=== PATIENT | female | born 1965 | race Caucasian/White ===

== ENCOUNTER 2024-01-25 14:33 | Outpatient (RCR) | payer BC, SELFPAY | END 2024-02-05 23:59 | disposition home or self-care (01) | LOC: SCTC 14:33 | PROVIDERS: PCP Internal Medicine; Referring Provider Internal Medicine; Visit Provider Internal Medicine Hematology & Oncology | DX: D25.9 Leiomyoma of uterus, unspecified (principal); N83.202 Unspecified ovarian cyst, left side; N83.201 Unspecified ovarian cyst, right side; K74.60 Unspecified cirrhosis of liver | CPT/HCPCS: 99212; G0463 ==

== ENCOUNTER → 2024-02-07 | Outpatient (CLI) | payer BC, SELFPAY ==
--- NOTE | 2024-02-07 | XR_ITS ---
Examination: Left femur 2 views Technique one AP lateral left femur 2 views Exam date and time: February 07, 2024 0905 hours INDICATIONS: Left hip and femur pain beginning 3 weeks ago FINDINGS: No hip fracture or hip dislocation Mild left hip osteoarthritis Shaft of the femur intact Moderate narrowing medial joint space IMPRESSION: Mild left hip osteoarthritis
--- NOTE | 2024-02-07 | XR_ITS ---
Examination:Left hip AP, lateral, AP pelvis 3 views Technique: Hip AP lateral, AP pelvis, 3 views Exam date and time:February 07, 2024 0900 hours INDICATIONS: Left hip pain beginning 3 weeks ago. FINDINGS: Mild left hip osteoarthritis Mild right hip osteoarthritis Bones of the pelvis intact with no hip fracture IMPRESSION: Mild bilateral hip osteoarthritis.
== END | disposition home or self-care (01) ==
LOC: CDIM 07:26
PROVIDERS: PCP Internal Medicine; Referring Provider Internal Medicine; Visit Provider Internal Medicine
DX: M16.0 Bilateral primary osteoarthritis of hip (principal)
CPT/HCPCS: 73502; 73552

== ENCOUNTER → 2024-02-07 | Outpatient (CLI) | payer BC, SELFPAY ==
--- NOTE | 2024-02-07 17:00 | XR_ITS ---
Examination: Retroperitoneal ultrasound, complete Technique: Multiple high resolution grayscale images of the retroperitoneum obtained, including kidneys and bladder. Exam date and time:February 07, 2024 1713 hrs. Indications: Intermittent flank pain years, history urinary tract infections Findings: Right kidney 9.7 x 5.0 x 4.8 cm in the cortex 1.8 cm Moderate right hydronephrosis Left kidney 10.8 x 5.3 x 5.7 cm cortex 1.7 cm Moderate bilateral renal parenchyma scar formation No renal calculi No bladder mass or bladder calculi Bladder prevoid volume 20 25 cc postvoid 69 cc Incidental note right adnexal cyst 7.4 x 6.7 cm Impression: Moderate bilateral renal parenchymal scar formation Moderate right hydronephrosis Right adnexal cyst 7.4 x 6.7 cm
== END | disposition home or self-care (01) ==
PROVIDERS: PCP Internal Medicine; Referring Provider Internal Medicine; Visit Provider Internal Medicine
DX: N28.89 Other specified disorders of kidney and ureter (principal); N13.30 Unspecified hydronephrosis; E27.8 Other specified disorders of adrenal gland
CPT/HCPCS: 76770

== ENCOUNTER → 2024-02-17 | Outpatient (CLI) | payer BC, SELFPAY ==
[2024-02-17 10:21] LABS: Basophils % (Auto) 1 % (0-2.5); Eosinophils # (Auto) 0.1 Thou/mm3 (0.0-0.5); Eosinophils % (Auto) 2 % (0-10); Hematocrit 37.9 % (36.0-46.0); Hemoglobin 13.2 g/dL (12.0-16.0); Immature Granulocytes % (Auto) 0 % (0-0); Immature Granulocytes Auto 0.01 Thou/mm3 (0.00-0.00); Lymphocytes # (Auto) 0.9 Thou/mm3 (1.0-4.8); Lymphocytes % (Auto) 23 % (10-50); Mean Corpuscular HGB Conc 34.8 g/dl (31.0-37.0); Mean Corpuscular Hemoglobin 35.9 pg (25.0-35.0); Mean Corpuscular Volume 103 fL (80-100); Monocytes # (Auto) 0.6 Thou/mm3 (0.0-0.8); Monocytes % (Auto) 15 % (0-12); Neutrophils # (Auto) 2.2 Thou/mm3 (1.8-7.7); Neutrophils % (Auto) 58 % (37-80); Nucleated Red Blood Cell % 0 /100 WBC (0); Platelet Count 103 Thou/mm3 (140-440); RDW Standard Deviation 50.4 fL (36.4-46.3); Red Blood Count 3.68 Miln/mm3 (4.00-5.20); White Blood Count 3.8 Thou/mm3 (3.6-11.0)
[2024-02-17 10:31] LABS: Glucose Estimated Average 111 mg/dL (80-131); Hemoglobin A1C 5.5 % Hgb (4.8-6.0)
[2024-02-17 10:58] LABS: Vitamin B12 1053 pg/mL (211-911); Vitamin D 25 Hydroxy Total 41.4 ng/mL (7.3-40.2)
[2024-02-17 10:59] LABS: Alanine Aminotransferase 36 U/L (10-49); Albumin/Globulin Ratio 1.3 (1.2-2.2); Alkaline Phosphatase 197 U/L (46-116); Anion Gap 5 (7-16); Aspartate Amino Transferase 52 U/L (0-34); BUN/Creatinine Ratio 30 Ratio (12-20); Bilirubin,Total 1.1 mg/dL (0.3-1.2); Blood Urea Nitrogen 27 mg/dL (9-23); Calcium 9.5 mg/dL (8.3-10.6); Calcium (Corrected) 9.5 mg/dL (8.5-10.1); Carbon Dioxide 27.9 mMol/L (20.0-31.0); Cardiac Risk Estimate 4.8 RATIO (3.7-5.6); Chloride 107 mMol/L (98-107); Cholesterol 115 mg/dL (132-200); Creatinine (Component) 0.9 mg/dL (0.6-1.3); Glucose 95 mg/dL (74-106); HDL Cholesterol 24 mg/dL (40-60); LDL Cholesterol,Calculated 73 mg/dL (0-130); Osmolality,Calculated 284 (275-295); Sodium 140 mMol/L (136-145); Thyroid Stimulating Hormone 4.42 uIU/mL (0.55-4.78); Triglycerides 89 mg/dL (30-150); Uric Acid 6.8 mg/dL (3.1-7.8); eGFR > 60 See Note
[2024-02-17 14:07] LABS: Collection Type, Urine Clean Catch
[2024-02-17 15:19] LABS: Bacteria,Urine 2+; Bilirubin,Urine Negative (Negative); Blood,Urine Trace (Negative); Color,Urine Yellow (Lt Yel-Yel); Glucose, Urine Negative (Negative); Ketones,Urine Negative (Negative); Leukocyte Esterase,Urine Positive (Negative); Nitrite,Urine Positive (Negative); Protein,Urine Negative (Neg - Trace); RBC,Urine 5 /hpf (0-3); Specific Gravity,Urine 1.015 (1.001-1.035); Squamous Epithelial Cell,Urine 1 /hpf (0-5); Urobilinogen,Urine Negative mg/dL (0.0-1.0); WBC,Urine 53 /hpf (0-5)
[2024-02-17 15:34] LABS: Clarity,Urine Hazy (Clear/Hazy)
== END | disposition home or self-care (01) ==
LOC: COPL 08:38
PROVIDERS: PCP Internal Medicine; Referring Provider Internal Medicine; Visit Provider Internal Medicine
DX: Z00.00 Encounter for general adult medical examination without abnormal findings (principal)
CPT/HCPCS: 36415; 80053; 80061; 81001; 82306; 82607; 83036; 84443; 84550; 85025

== ENCOUNTER 2024-03-10 09:35 | Day surgery (SDC) | payer BC, SELFPAY ==
--- NOTE | 2024-03-09 08:24 | EKG_ITS ---
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
[2024-03-09 08:35] VITALS: BMI 33.1
[2024-03-09 09:28] LABS: Collection Type, Urine Clean Catch
[2024-03-09 09:49] LABS: Bacteria,Urine 1+; Bilirubin,Urine Negative (Negative); Blood,Urine 1+ (Negative); Color,Urine Yellow (Lt Yel-Yel); Glucose, Urine Negative (Negative); Ketones,Urine Negative (Negative); Leukocyte Esterase,Urine Positive (Negative); Nitrite,Urine Positive (Negative); PH,Urine 6.5 (5.0-7.0); Protein,Urine Negative (Neg - Trace); RBC,Urine 22 /hpf (0-3); Squamous Epithelial Cell,Urine 1 /hpf (0-5); Urobilinogen,Urine Negative mg/dL (0.0-1.0); WBC,Urine 91 /hpf (0-5)
[2024-03-09 09:55] LABS: Basophils % (Auto) 1 % (0-2.5); Eosinophils # (Auto) 0.1 Thou/mm3 (0.0-0.5); Eosinophils % (Auto) 2 % (0-10); Hematocrit 40.5 % (36.0-46.0); Hemoglobin 13.6 g/dL (12.0-16.0); Immature Granulocytes % (Auto) 0 % (0-0); Lymphocytes # (Auto) 1.1 Thou/mm3 (1.0-4.8); Lymphocytes % (Auto) 29 % (10-50); Mean Corpuscular HGB Conc 33.6 g/dl (31.0-37.0); Mean Corpuscular Hemoglobin 34.4 pg (25.0-35.0); Mean Corpuscular Volume 103 fL (80-100); Monocytes # (Auto) 0.5 Thou/mm3 (0.0-0.8); Monocytes % (Auto) 12 % (0-12); Neutrophils # (Auto) 2.3 Thou/mm3 (1.8-7.7); Neutrophils % (Auto) 57 % (37-80); Nucleated Red Blood Cell % 0 /100 WBC (0); Platelet Count 113 Thou/mm3 (140-440); RDW Standard Deviation 49.6 fL (36.4-46.3); Red Blood Count 3.95 Miln/mm3 (4.00-5.20)
[2024-03-09 10:01] LABS: INR 1.2 (0.9-1.3); Partial Thromboplastin Time 30.3 Seconds (22.0-36.0); Prothrombin Time 12.5 Seconds (9.0-12.2)
[2024-03-09 10:07] LABS: Alanine Aminotransferase 29 U/L (10-49); Albumin, Serum 4.3 gm/dL (3.4-4.8); Albumin/Globulin Ratio 1.2 (1.2-2.2); Alkaline Phosphatase 215 U/L (46-116); Anion Gap 6 (7-16); Aspartate Amino Transferase 43 U/L (0-34); BUN/Creatinine Ratio 22 Ratio (12-20); Bilirubin,Total 0.9 mg/dL (0.3-1.2); Blood Urea Nitrogen 24 mg/dL (9-23); Calcium 9.9 mg/dL (8.3-10.6); Calcium (Corrected) 9.9 mg/dL (8.5-10.1); Chloride 106 mMol/L (98-107); Creatinine (Component) 1.1 mg/dL (0.6-1.3); Estimated Creatinine Clearance 53.4 mL/min (>60); Globulin 3.5 gm/dL (2.3-3.5); Glucose 167 mg/dL (74-106); Osmolality,Calculated 289 (275-295); Potassium 4.3 mMol/L (3.4-5.1); Sodium 141 mMol/L (136-145); Total Protein 7.8 gm/dL (5.7-8.2); eGFR 57 See Note
[2024-03-09 10:38] LABS: Clarity,Urine Hazy (Clear/Hazy)
--- NOTE | 2024-03-09 12:06 | ESHP_ITS ---
RE: IRMA MACIEL : 1965 DATE OF ADMISSION: 03/10/2024 HISTORY OF PRESENT ILLNESS: Irma Maciel is a female patient with a recurrent urinary tract infection. She has many infections resistant to nitrofurantoin, Septra, and Cipro. CT of the abdomen and pelvis revealed a right kidney stone 6 to 7 mm in size. The patient is now scheduled to have ESWL for right kidney stones. PAST MEDICAL HISTORY: The patient has a history of cirrhosis of liver. There is no history of diabetes mellitus. No history of hypertension. PAST SURGICAL HISTORY: Included two C-sections. She had a fracture of the pelvis. SOCIAL HISTORY: She has two children. ALLERGIES: SHE IS ALLERGIC TO BACTRIM. HOME MEDICATIONS: She takes antibiotics when she gets infection. PHYSICAL EXAMINATION: HEENT: Normal. NECK: Supple. LUNGS: Clear. CARDIOVASCULAR: Heart sounds are normal. ABDOMEN: Soft without any organomegaly. No guarding. No rigidity. EXTREMITIES: Normal. LABORATORY DATA: Recent CT scan revealed right kidney stone 6 to 7 mm in the lower pole of the right kidney. PLAN: ESWL for right kidney stones. Planned procedure, risks, and complications have been discussed with the patient. Her recent UTI was E. coli UTI, sensitive to Amikacin, Rocephin and sensitive to gentamicin. Risks and complications of ESWL have been discussed with the patient. The patient understood them and agreed to proceed. Thank you very much for your kind referral. cc: Camilla Hong MD DT: 11:10:25 TT: 12:05:00 Ref: [id number] - TID: [id number]
--- NOTE | 2024-03-09 15:26 | SUR.PREOP ---
Pt notified to come in at 1000 tomorrow.
--- NOTE | 2024-03-10 06:00 | XR_ITS ---
Examination: Abdomen AP single view Technique: AP portable supine abdomen, single view Exam date and time: March 10, 2024 1030 hours INDICATIONS: Preop kidney stones FINDINGS: Large amounts of stool in the colon overlies the kidneys No renal or ureteral calculi are visible IMPRESSION: No renal or ureteral calculi are visible
[2024-03-10 10:17] VITALS: BP 120/72; PULSE 68; RESP 16; TEMP 36.6; O2SAT 100; BMI 33.0
[2024-03-10] MEDS: RINGERS LACTATED 1000 ML 1,000 ML 20 ML IV (10:26)
[2024-03-10 12:04] VITALS: BP 114/75; PULSE 71; RESP 20; TEMP 36.5; O2SAT 100
--- NOTE | 2024-03-10 12:04 | SUR.PHASEII ---
1204 Patient arrived to recovery resting comfortably in [facility], case was cancelled due to no evidence of kidney stone, no anesthesia administered to patient, patient awake and alert, breathing unlabored, vital signs stable, denies pain and nausea, lung sounds clear upon auscultation, bilateral radial pulses present when palpated, report received from Radha MOYER
[2024-03-10 12:09] VITALS: BP 107/71; PULSE 71; RESP 19; O2SAT 99
[2024-03-10 12:14] VITALS: BP 99/66; PULSE 88; RESP 15; O2SAT 99
[2024-03-10 12:19] VITALS: BP 101/61; PULSE 71; RESP 15; O2SAT 99
--- NOTE | 2024-03-10 12:35 | SUR.PHASEII ---
1235 Patient awake and alert, dressed in clothing, IV discontinued, instructions given for patient to follow up with MD in two week, patient walked down stairs and went to the cafeteria with her .
--- NOTE | 2024-03-10 12:51 | SUR.OPER ---
No stone shown in fluroscopy, procedure not completed
--- NOTE | 2024-03-10 16:20 | ESOP_ITS ---
RE: MANPREET MACIEL : 1965 DATE OF OPERATION: 03/10/2024 PREOPERATIVE DIAGNOSES: Right lower pole renal stone, history of a small left lower pole stone, and recurrent multiple urinary tract infections. POSTOPERATIVE DIAGNOSES: Right lower pole renal stone, history of a small left lower pole stone, and recurrent multiple urinary tract infections. PROCEDURE PERFORMED: Attempted right ESWL. ANESTHESIA: None. INDICATION: The patient is a 59-year-old female with recurrent UTIs. CT scan of the abdomen and pelvis done before revealed right lower pole renal stone with mild hydronephrosis. The stone was about 6-7 mm in size. On the left side, there was a tiny stone in the lower pole. In view of her recurrent UTIs and stone, she was now scheduled to have ESWL done for the right renal stone. Planned procedure, risks and complications have been discussed with the patient. The patient understood them and agreed to proceed. DESCRIPTION OF PROCEDURE: After the patient was brought to the operating table without any anesthesia, she was placed on a Dornier Delta III lithotripsy machine and fluoroscopy was done. On fluoroscopy, I did not see any definite urinary stones in the lower pole of the right kidney. After a thorough fluoroscopy, we decided that patient could have passed the stone in the past and there are no more urinary calculi seen in the right kidney. The procedure was terminated. The patient tolerated the procedure well and was sent to the recovery room. DT: 12:10:35 TT: 16:19:00 Ref: [id number] - TID: [id number]
== END 2024-03-10 12:35 | disposition home or self-care (01) ==
PROVIDERS: Anesthesiology; PCP Internal Medicine; Referring Provider Surgery; Visit Provider Surgery
PROC: (CPT 50590; principal; 2024-03-10 12:15)
DX: N13.30 Unspecified hydronephrosis (principal); Z87.440 Personal history of urinary (tract) infections; Z01.810 Encounter for preprocedural cardiovascular examination
CPT/HCPCS: 50590; 36415; 74018; 80053; 81001; 85025; 85610; 85730; 87077; 87086; 87186; 93005; A4217; J7120

== ENCOUNTER → 2024-04-25 | Outpatient (CLI) | payer BC, SELFPAY ==
[2024-04-25 15:53] LABS: Basophils % (Auto) 0 % (0-2.5); Eosinophils # (Auto) 0.1 Thou/mm3 (0.0-0.5); Eosinophils % (Auto) 3 % (0-10); Hematocrit 40.3 % (36.0-46.0); Hemoglobin 13.9 g/dL (12.0-16.0); Immature Granulocytes % (Auto) 0 % (0-0); Immature Granulocytes Auto 0.01 Thou/mm3 (0.00-0.00); Lymphocytes # (Auto) 1.4 Thou/mm3 (1.0-4.8); Lymphocytes % (Auto) 30 % (10-50); Mean Corpuscular HGB Conc 34.5 g/dl (31.0-37.0); Mean Corpuscular Volume 99 fL (80-100); Monocytes # (Auto) 0.5 Thou/mm3 (0.0-0.8); Monocytes % (Auto) 11 % (0-12); Neutrophils # (Auto) 2.5 Thou/mm3 (1.8-7.7); Neutrophils % (Auto) 56 % (37-80); Nucleated Red Blood Cell % 0 /100 WBC (0); Platelet Count 109 Thou/mm3 (140-440); Red Blood Count 4.09 Miln/mm3 (4.00-5.20); White Blood Count 4.5 Thou/mm3 (3.6-11.0)
[2024-04-25 16:13] LABS: Alanine Aminotransferase 27 U/L (10-49); Albumin, Serum 3.9 gm/dL (3.4-4.8); Albumin/Globulin Ratio 1.2 (1.2-2.2); Alkaline Phosphatase 207 U/L (46-116); Anion Gap 7 (7-16); Aspartate Amino Transferase 41 U/L (0-34); BUN/Creatinine Ratio 27 Ratio (12-20); Bilirubin,Total 0.8 mg/dL (0.3-1.2); Blood Urea Nitrogen 30 mg/dL (9-23); Calcium 9.5 mg/dL (8.3-10.6); Calcium (Corrected) 9.6 mg/dL (8.5-10.1); Carbon Dioxide 30.7 mMol/L (20.0-31.0); Chloride 104 mMol/L (98-107); Creatinine (Component) 1.1 mg/dL (0.6-1.3); Globulin 3.3 gm/dL (2.3-3.5); Glucose 149 mg/dL (74-106); Osmolality,Calculated 292 (275-295); Potassium 3.7 mMol/L (3.4-5.1); Sodium 142 mMol/L (136-145); Total Protein 7.2 gm/dL (5.7-8.2); eGFR 57 See Note
[2024-04-25 18:51] LABS: INR 1.1 (0.9-1.3); Prothrombin Time 12.4 Seconds (9.0-12.2)
[2024-05-02 06:28] LABS: Alpha-1-Antitrypsin* 181 mg/dL (83-199)
== END | disposition home or self-care (01) ==
LOC: COPL 15:17 → SCTO 15:29
PROVIDERS: PCP Internal Medicine; Referring Provider Specialist; Visit Provider Nurse Practitioner Family
DX: K74.60 Unspecified cirrhosis of liver (principal); K75.4 Autoimmune hepatitis
CPT/HCPCS: 36415; 80053; 82103; 82105; 85025; 85610

== ENCOUNTER → 2024-07-17 | Outpatient (CLI) | payer BC, SELFPAY ==
[2024-07-17 11:54] LABS: Basophils % (Auto) 1 % (0-2.5); Eosinophils # (Auto) 0.2 Thou/mm3 (0.0-0.5); Eosinophils % (Auto) 3 % (0-10); Hematocrit 43.6 % (36.0-46.0); Immature Granulocytes % (Auto) 0 % (0-0); Immature Granulocytes Auto 0.01 Thou/mm3 (0.00-0.00); Lymphocytes # (Auto) 1.4 Thou/mm3 (1.0-4.8); Lymphocytes % (Auto) 30 % (10-50); Mean Corpuscular HGB Conc 34.4 g/dl (31.0-37.0); Mean Corpuscular Hemoglobin 34.1 pg (25.0-35.0); Mean Corpuscular Volume 99 fL (80-100); Monocytes # (Auto) 0.6 Thou/mm3 (0.0-0.8); Monocytes % (Auto) 12 % (0-12); Neutrophils # (Auto) 2.6 Thou/mm3 (1.8-7.7); Neutrophils % (Auto) 54 % (37-80); Nucleated Red Blood Cell % 0 /100 WBC (0); Platelet Count 109 Thou/mm3 (140-440); RDW Standard Deviation 51.9 fL (36.4-46.3); White Blood Count 4.8 Thou/mm3 (3.6-11.0)
[2024-07-17 12:09] LABS: INR 1.1 (0.9-1.3); Prothrombin Time 12.2 Seconds (9.0-12.2)
[2024-07-17 12:17] LABS: Alanine Aminotransferase 25 U/L (10-49); Albumin, Serum 4.3 gm/dL (3.4-4.8); Albumin/Globulin Ratio 1.3 (1.2-2.2); Alkaline Phosphatase 226 U/L (46-116); Anion Gap 8 (7-16); Aspartate Amino Transferase 43 U/L (0-34); BUN/Creatinine Ratio 28 Ratio (12-20); Bilirubin,Direct 0.3 mg/dL (0.0-0.3); Blood Urea Nitrogen 28 mg/dL (9-23); Calcium 9.3 mg/dL (8.3-10.6); Calcium (Corrected) 9.3 mg/dL (8.5-10.1); Carbon Dioxide 26.7 mMol/L (20.0-31.0); Chloride 106 mMol/L (98-107); Globulin 3.4 gm/dL (2.3-3.5); Glucose 81 mg/dL (74-106); Osmolality,Calculated 285 (275-295); Phosphorous 3.1 mg/dL (2.4-5.1); Potassium 3.9 mMol/L (3.4-5.1); Sodium 141 mMol/L (136-145); Total Protein 7.7 gm/dL (5.7-8.2); eGFR > 60 See Note
[2024-07-24 07:30] LABS: Alpha-1-Antitrypsin* 188 mg/dL (83-199)
== END | disposition home or self-care (01) ==
LOC: COPL 10:30
PROVIDERS: PCP Internal Medicine; Referring Provider Internal Medicine; Visit Provider Specialist
DX: K74.60 Unspecified cirrhosis of liver (principal); K75.4 Autoimmune hepatitis; N13.30 Unspecified hydronephrosis
CPT/HCPCS: 36415; 80053; 82103; 82105; 82248; 84100; 85025; 85610

== ENCOUNTER → 2024-07-19 | Outpatient (CLI) | payer BC, SELFPAY ==
[2024-07-19 09:19] LABS: Basophils % (Auto) 1 % (0-2.5); Eosinophils # (Auto) 0.1 Thou/mm3 (0.0-0.5); Eosinophils % (Auto) 3 % (0-10); Hematocrit 39.6 % (36.0-46.0); Immature Granulocytes % (Auto) 0 % (0-0); Immature Granulocytes Auto 0.01 Thou/mm3 (0.00-0.00); Lymphocytes # (Auto) 0.8 Thou/mm3 (1.0-4.8); Lymphocytes % (Auto) 22 % (10-50); Mean Corpuscular HGB Conc 35.4 g/dl (31.0-37.0); Mean Corpuscular Hemoglobin 34.4 pg (25.0-35.0); Mean Corpuscular Volume 97 fL (80-100); Monocytes # (Auto) 0.3 Thou/mm3 (0.0-0.8); Monocytes % (Auto) 9 % (0-12); Neutrophils # (Auto) 2.4 Thou/mm3 (1.8-7.7); Neutrophils % (Auto) 65 % (37-80); Nucleated Red Blood Cell % 0 /100 WBC (0); Platelet Count 98 Thou/mm3 (140-440); RDW Standard Deviation 51.5 fL (36.4-46.3); Red Blood Count 4.07 Miln/mm3 (4.00-5.20); White Blood Count 3.7 Thou/mm3 (3.6-11.0)
[2024-07-19 09:40] LABS: Alanine Aminotransferase 22 U/L (10-49); Albumin, Serum 4.2 gm/dL (3.4-4.8); Albumin/Globulin Ratio 1.2 (1.2-2.2); Alkaline Phosphatase 221 U/L (46-116); Anion Gap 9 (7-16); Aspartate Amino Transferase 38 U/L (0-34); BUN/Creatinine Ratio 23 Ratio (12-20); Blood Urea Nitrogen 25 mg/dL (9-23); Calcium 9.3 mg/dL (8.3-10.6); Calcium (Corrected) 9.3 mg/dL (8.5-10.1); Carbon Dioxide 28.5 mMol/L (20.0-31.0); Chloride 105 mMol/L (98-107); Creatinine (Component) 1.1 mg/dL (0.6-1.3); Globulin 3.5 gm/dL (2.3-3.5); Glucose 208 mg/dL (74-106); Osmolality,Calculated 293 (275-295); Sodium 142 mMol/L (136-145); Total Protein 7.7 gm/dL (5.7-8.2); eGFR 57 See Note
== END | disposition home or self-care (01) ==
LOC: SCTO 08:28
PROVIDERS: PCP Internal Medicine; Referring Provider Nurse Practitioner Family; Visit Provider Nurse Practitioner Family
DX: K74.60 Unspecified cirrhosis of liver (principal)
CPT/HCPCS: 36415; 80053; 82105; 85025

== ENCOUNTER 2024-07-26 13:04 | Outpatient (RCR) | payer BC, SELFPAY ==
--- NOTE | 2024-08-02 00:10 | CTCFLWUP_ITS ---
Patient: IRMA MACIEL : 1965 Page 4 of 6 FOLLOW UP NOTE DATE OF SERVICE: 07/26/2024 NAME: IRMA MACIEL ACCOUNT: [id number] : 1965 AGE: 59 INTERVAL HISTORY: Subjective: Chief Complaint Follow-up for liver cirrhosis, elevated alpha-fetoprotein levels History of Present Illness Irma Maciel, a patient with a history of cirrhosis, presents for follow-up of her liver condition. She was previously seen for epistaxis in June of last year, which required cauterization. The patient's liver issues are causing complications due to back pressure on the spleen, resulting in splenomegaly. She reports a decrease in platelet count from 109 to 98. The patient's liver enzymes, which were initially high indicating inflammation, have now decreased, suggesting reduced liver function. She is experiencing difficulty adhering to dietary restrictions necessary for her liver health. The patient expresses guilt about eating meat after listening to a holistic guru, making it challenging to maintain a balanced diet. She mentions recently consuming squash prepared by her mother. The patient reports a recent urinary tract infection for which she was prescribed antibiotics (amoxicillin and amoxiclav) by Dr. Ku. She completed a 10-day course of antibiotics just prior to her most recent lab tests. The patient inquires about dietary restrictions, specifically asking about vinegar and orange juice consumption. She admits to eating sourdough bread with fried eggs, pepper octavia cheese, and croatian fries, despite knowing it may not be ideal for her liver condition. Medications and Supplements - Promacta - Not currently taking. Only started if platelets drop below 30. - Amoxicillin - Taken for 10 days for urinary tract infection. Recently completed. - Amoxiclav - Taken for 10 days for urinary tract infection. Recently completed. Review of Systems Gastrointestinal: Positive for decreased appetite. Genitourinary: Positive for recent urinary tract infection (resolved). Objective: Laboratory, Imaging, and Diagnostic Test Results - Current results: - Platelets: 98 (decreased from 109) - Alpha-fetoprotein: Elevated (specific value not provided) - Previous results: - Platelets: 109 (date not specified) ONCOLOGY HISTORY: DIAGNOSIS: Persistent epistaxis since 05/10/2023. S/p cauterizations x 3, resolved. Coagulopathy with prolonged PT, INR secondary to cirrhosis of the liver. 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 Reyna, GI. History of Elevated T. bili, AST and ALT, AFP levels. Liver biopsy, benign, cirrhosis, 06/08/2023. REASON FOR TODAY?S VISIT: This is an office follow-up visit. HISTORY OF PRESENT ILLNESS: Ms. Maciel is at [facility]. Ultrasound and pelvis done on 01/04/2024 showed small uterine areas of fibroid degeneration and bilateral ovarian cysts. Patient reports history of uterine fibroids for over 20 years, denies vaginal bleeding denies pelvic abdominal pain, reports that during her last follow-up with [facility] she was told no intervention was needed, does not want to follow-up with [facility] again as she is not having any pain or vaginal bleeding or concerns. Patient had a surveillance CT of abdomen and pelvis with contrast January 14, 2024 at [facility], was told next follow up with [facility] would be in 6 months, we do not have records. Patient also following up with Dr. Reyna, last follow-up in 01/18/2024. Patient reports good energy levels and appetite. Patient denies any bleeding concerns. Patient denies any abdominal pain chest pain leg cramps weight loss fever. HISTORY: Irma Maciel is a 59-year-old ENG speaking female diagnosed with cirrhosis of the liver about a year and a half ago. Patient was not an alcoholic. Never had any hepatitis infections in the past. Currently she is being followed by Dr. Reyna for for cirrhosis. May 10 3023: Patient started having nosebleeds after a sneezing episode. Since then nosebleeding was persistent. She has seen ENT surgeon Dr. Balderrama who cauterized at 3 different occasions. Unfortunately she continues to have nosebleeds. Currently she has packing on both sides of the nose. She is referred to hematology clinic for further workup. 04/10/2023: PT 18.6, INR 1.9., T. bili 4.1, AST 658, ALT 520, alkaline phosphatase 387 05/15/2023: PT 18.8, INR 1.9, PTT 33.6 05/21/2023: PT 18.7, INR 1.9, PTT 33.3. 05/26/2023: PT 17.9, INR 1.8. WBC 8.7, ANC 4.8, hemoglobin 13.2, MCV 105, platelets 153,000, T. bili 3.9, AST 973, ALT 677, alkaline phosphatase 458. 06/03/2023: PT 18.0, INR 1.8, PTT 35.1, AFP 11.7, hepatitis panel normal, AST 1072 ALT 653 alkaline phosphatase 432, T. 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 bili 2.9, WBC 7.5, ANC 4.4, hemoglobin 11.6, MCV 111, platelets 233,000. 12/09/2023: PT 13.0, INR 1.2, AST 63, ALT 34 alkaline phosphatase 218, T. bili 1.4, WBC 4.1, ANC 2.4, hemoglobin 13.4, MCV 103, platelets 122,000, AFP 55.90 OTHER MEDICAL HISTORY/CONDITIONS: Cirrhrosis?liver Hypothyroid Epistaxis Cholecystectomy - 5 yrs ago x 2 - 1980; 1985 Tubal ligation - 30yrs ago ?Clone Other Med Hx? FAMILY HISTORY: Cancer?History:?Denies Patient?denies?family?cancer?history. ?Clone Family Hx? SOCIAL HISTORY: Occupational?History:?Disabled Education?Level:?Completed 10th grade Marital?Status:? Tobacco?Use:?Denies ETOH Use:?Denies - Drank socially 25 yrs ago Drug?Note:?Denies Social?History?Note:?Lives?wtih? ?Clone Social Hx? [facility] HISTORY: Menarche?-?Age:?9 Menopause:?2016 :?3 Live?Births:?2 Age?1st?:?15 Gynecological?Note:?1? ?Clone [facility] Hx? MEDICATIONS: 1. azaTHIOprine - 50 mg 1 tab Daily 2. Lasix - 20 mg 1 tab Twice a Day 3. levothyroxine - 75 mcg 1 tab Daily 4. sertraline - 25 mg 1 tab Daily 5. spironolactone - 25 mg 1 tab Twice a Day 6. ursodioL - 400 mg 1 Capsule Twice a Day?Palabra Meds? Medications Last Reconciled by Ara Turner MA on 07/26/2024 ALLERGIES: Sulfa (Sulfonamide Antibiotics) REVIEW OF SYSTEMS: A complete 14-point review of systems was performed and is negative except as noted in interval history. PHYSICAL EXAMINATION: VITAL SIGNS: Temperature?98.2, B/P?104/71, Oxygen?Saturation?97% Weight?190?lbs PAIN: 3 - Between mild and moderate pain ECOG Performance Status: 0 - Asymptomatic and fully active GENERAL APPEARANCE: Appears well, in no apparent distress, appropriately interactive. HEENT: Normocephalic, no temporal wasting, normal conjunctiva, no scleral icterus, normal hearing, lips without lesions, neck normal range of motion. CARDIOVASCULAR: Not assessed. PULMONARY: Normal respiratory effort, no respiratory distress or use of accessory muscles, speaking in full sentences, no tachypnea. EXTREMITIES: No pedal edema or cyanosis. SKIN: Normal skin appearance. NEUROLOGIC: Alert and oriented x4. PSHYCHIATRIC: Appropriate affect, mood normal, behavior normal, intact thought and speech. LABORATORY DATA: I have personally reviewed and interpreted each of the patient?s relevant lab tests, abnormal findings are below: Date 07/17/24 07/19/24 ??WHITE?BLOOD?COUNT?(Thou/mm3) 4.8 3.7 ??RED?BLOOD?COUNT?(Miln/mm3) 4.40 4.07 ??HEMOGLOBIN?(gm/dl) 15.0 14.0 ??HEMATOCRIT?(%) 43.6 39.6 ??PLATELET?COUNT?(Thou/mm3) 109?L 98?L ??NEUTROPHILS?%,?AUTO?(%) 54 65 ??LYMPH?%,?AUTO?(%) 30 22 ??NEUTROPHILS,?AUTO?(Thou/mm3) 2.6 2.4 ??GLUCOSE,RANDOM?(mg/dL) 81 208?H ??BLOOD?UREA?NITROGEN?(mg/dL) 28?H 25?H ??CREATININE?(mg/dL) 1.00 1.10 ??SODIUM?(mmol/L) 141 142 ??POTASSIUM?(mmol/L) 3.9 4.0 ??CHLORIDE?(mmol/L) 106 105 ??CrCl?(CandG)?(ml/min) 59.07 53.70 ??AST/SGOT?(Unit/L) 43?H 38?H ??ALT/SGPT?(Unit/L) 25 22 ??ALKALINE?PHOSPHATASE?(Unit/L) 226?H 221?H ??BILIRUBIN,?TOTAL?(mg/dL) 1.0 1.0 ??PROTEIN?TOTAL?(gm/dl) 7.7 7.7 ??ALBUMIN,?SERUM?(gm/dl) 4.3 4.2 ??GLOBULIN?(gm/dl) 3.4 3.5 ??ALBUMIN/GLOBULIN?RATIO 1.3 1.2 ??CALCIUM,?SERUM?(mg/dL) 9.3 9.3 ??CALCIUM?SERUM?(CORRECTED)?(mg/dL) 9.3 9.3 ASSESSMENT/PLAN: Assessment and Plan: Irma Maciel, a patient with cirrhosis of the liver, presents with concerns about liver function, recent epistaxis, and weight management. Cirrhosis of the liver Assessment: Patient has known cirrhosis of the liver, causing various complications. Liver enzymes were initially high, indicating inflammation, but are now lower, suggesting reduced function. The liver is approaching a critical point of function, estimated to be close to but not yet at 20% capacity. Alpha- fetoprotein levels are increasing, which is a concerning liver marker. Recent platelet count is 98, down from 109, likely due to portal hypertension causing splenic sequestration. The patient's liver is at high risk for hepatocellular carcinoma due to cirrhosis. Plan: - Order liver imaging studies: - Fibroscan to assess cirrhosis severity - Additional scan to investigate rising alpha-fetoprotein levels - Monitor platelet count; consider Promacta if platelets drop below 30 - Strict dietary recommendations: - Avoid weight gain - Consume lean proteins, vegetables, and whole fruits - Limit or avoid rice, pasta, bread, peanut butter, red meat, sugars, and artificial sweeteners - Avoid alcohol and acetaminophen - Refer to liver specialist Dr. Estuardo Powell at [facility] for ongoing management - Continue follow-up with Dr. Reyna and Dr. Hong Epistaxis Assessment: Patient has a history of epistaxis, which was treated with cauterization by Dr. Jaime in June of the previous year. The epistaxis is likely related to the patient's liver cirrhosis and subsequent coagulopathy. Current platelet count of 98 should not cause significant bleeding or bruising. Plan: - Monitor for recurrence of epistaxis - No specific interventions required at this time given stable platelet count Obesity Assessment: Patient's weight is a significant concern in the context of liver cirrhosis. Weight loss is crucial for improving liver function and overall health. Current diet includes high-calorie foods that are detrimental to liver health. Plan: - Implement strict weight loss regimen - Dietary education: - Emphasize consumption of lean proteins, vegetables, and whole fruits - Avoid high-calorie foods, processed sugars, and artificial sweeteners - Limit fruit juices due to high sugar content - Consume egg whites, limit whole eggs - Encourage regular exercise as tolerated - Follow-up to assess adherence to dietary changes and weight loss progress RETURN TO CLINIC: BILLING AND COMPLIANCE: I reviewed external records from providers outside my specialty as summarized above. I spent a total of 50 minutes on this patient?s care on the day of their visit excluding time spent related to any billed procedures. This time includes time spent with the patient as well as time spent documenting in the medical record, reviewing patients records and tests, obtaining history, placing orders, communicating with other healthcare professionals, counseling the patient, family or caregiver, and/or care coordination for the diagnoses above. Electronically Signed by: Serge Vee MD T: 12:08 AM CC: PCP: Camilla Hong Referring: Camilla Hong This document was completed utilizing speech recognition software. Grammatical errors, random word insertions, pronoun errors, and incomplete sentences are an occasional consequence of this system due to software limitations, ambient noise, and hardware issues. Any formal questions or concerns about the content, text or information contained within the body of this dictation should be directly addressed to the provider for clarification.
== END 2024-08-05 23:59 | disposition home or self-care (01) ==
LOC: SCTC 13:04
PROVIDERS: PCP Internal Medicine; Referring Provider Internal Medicine; Visit Provider Internal Medicine Hematology & Oncology
DX: K74.60 Unspecified cirrhosis of liver (principal); E66.9 Obesity, unspecified; Z68.34 Body mass index [BMI] 34.0-34.9, adult
CPT/HCPCS: 99212; G0463

== ENCOUNTER → 2024-09-06 | Outpatient (CLI) | payer BC, SELFPAY ==
[2024-09-06 13:29] LABS: Basophils # (Auto) 0.0 Thou/mm3 (0.0-0.2); Basophils % (Auto) 1 % (0-2.5); Eosinophils # (Auto) 0.1 Thou/mm3 (0.0-0.5); Eosinophils % (Auto) 2 % (0-10); Hematocrit 39.9 % (36.0-46.0); Hemoglobin 14.3 g/dL (12.0-16.0); Immature Granulocytes Auto 0.01 Thou/mm3 (0.00-0.00); Lymphocytes # (Auto) 1.2 Thou/mm3 (1.0-4.8); Lymphocytes % (Auto) 29 % (10-50); Mean Corpuscular HGB Conc 35.8 g/dl (31.0-37.0); Mean Corpuscular Hemoglobin 34.5 pg (25.0-35.0); Mean Corpuscular Volume 96 fL (80-100); Monocytes # (Auto) 0.6 Thou/mm3 (0.0-0.8); Monocytes % (Auto) 15 % (0-12); Neutrophils # (Auto) 2.2 Thou/mm3 (1.8-7.7); Neutrophils % (Auto) 53 % (37-80); Nucleated Red Blood Cell # 0.00 Thou/mm3 (0.00-0.00); Nucleated Red Blood Cell % 0 /100 WBC (0); Platelet Count 111 Thou/mm3 (140-440); RDW Standard Deviation 49.1 fL (36.4-46.3); Red Blood Count 4.15 Miln/mm3 (4.00-5.20); White Blood Count 4.2 Thou/mm3 (3.6-11.0)
[2024-09-06 13:37] LABS: AFP Non-Pregnant 9.80 ng/mL (<8.10)
[2024-09-06 13:41] LABS: Alanine Aminotransferase 23 U/L (10-49); Albumin, Serum 4.3 gm/dL (3.4-4.8); Albumin/Globulin Ratio 1.3 (1.2-2.2); Alkaline Phosphatase 185 U/L (46-116); Anion Gap 3 (7-16); Aspartate Amino Transferase 40 U/L (0-34); BUN/Creatinine Ratio 23 Ratio (12-20); Bilirubin,Total 1.0 mg/dL (0.3-1.2); Blood Urea Nitrogen 27 mg/dL (9-23); Calcium 10.2 mg/dL (8.3-10.6); Calcium (Corrected) 10.2 mg/dL (8.5-10.1); Carbon Dioxide 30.6 mMol/L (20.0-31.0); Chloride 106 mMol/L (98-107); Creatinine (Component) 1.2 mg/dL (0.6-1.3); Globulin 3.3 gm/dL (2.3-3.5); Glucose 86 mg/dL (74-106); Osmolality,Calculated 283 (275-295); Potassium 3.7 mMol/L (3.4-5.1); Sodium 140 mMol/L (136-145); Total Protein 7.6 gm/dL (5.7-8.2); eGFR 52 See Note
== END | disposition home or self-care (01) ==
LOC: SCTO 11:51
PROVIDERS: PCP Internal Medicine; Referring Provider Internal Medicine Hematology & Oncology; Visit Provider Internal Medicine Hematology & Oncology
DX: K74.60 Unspecified cirrhosis of liver (principal)
CPT/HCPCS: 36415; 80053; 82105; 85025

== ENCOUNTER → 2024-09-12 | Outpatient (CLI) | payer BC, SELFPAY ==
--- NOTE | 2024-09-12 13:30 | XR_ITS ---
Examination: Abdomen sonogram, Limited Date and time of exam: September 12, 2024 1336 hours INDICATIONS: Diagnosis cirrhosis 2 years ago Technique: Real-time lópez scale transabdominal sonographic images of the upper abdomen obtained. Findings: Absent gallbladder Common bile duct 0.3 cm Pancreatic head 2.9 cm Liver 11.8 cm nodular contour fatty infiltration Normal hepatopedal portal venous flow Patent IVC IMPRESSION: Normal common bile duct Cirrhosis no focal liver lesions
== END | disposition home or self-care (01) ==
LOC: CDIM 13:19
PROVIDERS: PCP Internal Medicine; Referring Provider Internal Medicine Hematology & Oncology; Visit Provider Internal Medicine Hematology & Oncology
DX: K74.60 Unspecified cirrhosis of liver (principal)
CPT/HCPCS: 76705

== ENCOUNTER → 2024-09-21 | Outpatient (CLI) | payer BC, SELFPAY ==
[2024-09-21 09:09] LABS: Collection Type, Urine Clean Catch; Squamous Epithelial Cell,Urine 0 /hpf (0-5)
[2024-09-21 09:45] LABS: Bacteria,Urine 1+; Bilirubin,Urine Negative (Negative); Blood,Urine Trace (Negative); Color,Urine Yellow (Lt Yel-Yel); Glucose, Urine Negative (Negative); Ketones,Urine Negative (Negative); Leukocyte Esterase,Urine Positive (Negative); Nitrite,Urine Positive (Negative); PH,Urine 7.0 (5.0-7.0); Protein,Urine Negative (Neg - Trace); RBC,Urine 4 /hpf (0-3); Specific Gravity,Urine 1.013 (1.001-1.035); Urobilinogen,Urine Negative mg/dL (0.0-1.0); WBC,Urine 146 /hpf (0-5)
[2024-09-21 09:48] LABS: Clarity,Urine Hazy (Clear/Hazy); Culture Indicated,Urine Yes
== END | disposition home or self-care (01) ==
LOC: SLDO 08:52
PROVIDERS: Referring Provider Internal Medicine; Visit Provider Internal Medicine
DX: Z00.00 Encounter for general adult medical examination without abnormal findings (principal)
CPT/HCPCS: 81001; 87077; 87086; 87186

== ENCOUNTER → 2024-09-26 | Outpatient (CLI) | payer BC, SELFPAY ==
--- NOTE | 2024-09-26 11:40 | XR_ITS ---
Examination: Left elbow 3 views Technique: Elbow AP, oblique, lateral 3 views Exam date and time: September 26, 2024 1146 hours INDICATION: Elbow one month ago, elbow pain. FINDINGS: No fracture or dislocation. No elbow effusion IMPRESSION: No fracture or dislocation.
== END | disposition home or self-care (01) ==
PROVIDERS: PCP Internal Medicine; Referring Provider Internal Medicine; Visit Provider Internal Medicine
DX: M25.522 Pain in left elbow (principal)
CPT/HCPCS: 73080

== ENCOUNTER → 2024-09-30 | Outpatient (CLI) | payer BC, SELFPAY ==
--- NOTE | 2024-09-30 13:45 | XR_ITS ---
Examination: MRI abdomen with intravenous contrast. MRI abdomen without intravenous contrast. Date and time of exam: September 30, 2024, 1432 hours, comparison ultrasound liver September 12, 2024, CT chest 12/06/2023, CT chest June 24, 2023, CT abdomen pelvis June 21, 2023 INDICATIONS: Diagnosis cirrhosis 2 years ago Technique: Multiple axial, sagittal and coronal sections of the abdomen obtained. Transverse images, TR 6020, TE 107. T1 weighted transverse images, TR 582, TE 9.5. T2-weighted sagittal images, TR 4000, TE 105. T2-weighted sagittal images, TR 4000, TE 5. Coronal images, TR 4210, TE 107. Axial and coronal images are obtained post 18 cc intravenous injection, gadolinium. Findings: Liver lobular in contour, cirrhosis pattern Precontrast images demonstrate masslike area with increased signal dome of the liver on the right, axial image 8, AP dimension 9.0 cm mediolateral dimension 7.0 cm, cephalocaudad dimension 3.9 cm This area does not show enhancement on the postcontrast images Prominent splenomegaly No current ascites Moderate right and mild left hydronephrosis Aorta normal size No pericaval or periaortic lymphadenopathy IMPRESSION: Cirrhosis Precontrast liver images demonstrate masslike area with increased signal dome of the liver on the right, 9.0 x 7.0 x 3.9 cm Recommend follow-up CT abdomen and pelvis pre and post for phase contrast to assess the liver and confirm true liver lesion
== END | disposition home or self-care (01) ==
LOC: SMRI 13:00
PROVIDERS: PCP Internal Medicine; Referring Provider Internal Medicine Hematology & Oncology; Visit Provider Internal Medicine Hematology & Oncology
DX: K74.60 Unspecified cirrhosis of liver (principal)
CPT/HCPCS: 74183; A9579

== ENCOUNTER → 2024-10-03 | Outpatient (CLI) | payer BC, SELFPAY ==
[2024-10-03 10:57] LABS: Collection Type, Urine Clean Catch
[2024-10-03 13:38] LABS: Bacteria,Urine 3+; Bilirubin,Urine Negative (Negative); Blood,Urine 3+ (Negative); Clarity,Urine Turbid (Clear/Hazy); Color,Urine Yellow (Lt Yel-Yel); Glucose, Urine Negative (Negative); Ketones,Urine Negative (Negative); Leukocyte Esterase,Urine Positive (Negative); Nitrite,Urine Negative (Negative); PH,Urine 7.0 (5.0-7.0); Protein,Urine Trace (Neg - Trace); RBC,Urine 210 /hpf (0-3); Specific Gravity,Urine 1.019 (1.001-1.035); Squamous Epithelial Cell,Urine 4 /hpf (0-5); Urobilinogen,Urine Negative mg/dL (0.0-1.0); WBC,Urine 381 /hpf (0-5)
[2024-10-03 13:39] LABS: Culture Indicated,Urine Yes
== END | disposition home or self-care (01) ==
LOC: SLDO 10:32
PROVIDERS: PCP Internal Medicine; Referring Provider Internal Medicine; Visit Provider Internal Medicine
DX: N39.0 Urinary tract infection, site not specified (principal)
CPT/HCPCS: 81001; 87077; 87086; 87186

== ENCOUNTER → 2024-10-16 | Outpatient (CLI) | payer BC, SELFPAY ==
[2024-10-16 15:25] LABS: Collection Type, Urine Clean Catch; Squamous Epithelial Cell,Urine 0 /hpf (0-5)
[2024-10-16 16:38] LABS: Amorphous Crystals,Urine Present (Absent); Bacteria,Urine 1+; Bilirubin,Urine Negative (Negative); Blood,Urine Trace (Negative); Clarity,Urine Turbid (Clear/Hazy); Color,Urine Yellow (Lt Yel-Yel); Glucose, Urine Negative (Negative); Ketones,Urine Negative (Negative); Leukocyte Esterase,Urine Positive (Negative); Nitrite,Urine Negative (Negative); PH,Urine 6.0 (5.0-7.0); Protein,Urine Negative (Neg - Trace); RBC,Urine 6 /hpf (0-3); Specific Gravity,Urine 1.011 (1.001-1.035); Urobilinogen,Urine Negative mg/dL (0.0-1.0); WBC,Urine 11 /hpf (0-5)
[2024-10-16 16:43] LABS: Culture Indicated,Urine Yes
== END | disposition home or self-care (01) ==
PROVIDERS: PCP Internal Medicine; Referring Provider Internal Medicine; Visit Provider Internal Medicine
DX: Z00.00 Encounter for general adult medical examination without abnormal findings (principal)
CPT/HCPCS: 81001; 87077; 87086; 87186

== ENCOUNTER → 2024-11-24 | Outpatient (CLI) | payer BC, SELFPAY ==
[2024-11-24 11:30] LABS: Basophils # (Auto) 0.0 Thou/mm3 (0.0-0.2); Basophils % (Auto) 1 % (0-2.5); Eosinophils # (Auto) 0.1 Thou/mm3 (0.0-0.5); Eosinophils % (Auto) 2 % (0-10); Hematocrit 40.2 % (36.0-46.0); Hemoglobin 14.3 g/dL (12.0-16.0); Immature Granulocytes Auto 0.01 Thou/mm3 (0.00-0.00); Lymphocytes # (Auto) 1.3 Thou/mm3 (1.0-4.8); Lymphocytes % (Auto) 30 % (10-50); Mean Corpuscular HGB Conc 35.6 g/dl (31.0-37.0); Mean Corpuscular Hemoglobin 35.3 pg (25.0-35.0); Mean Corpuscular Volume 99 fL (80-100); Monocytes # (Auto) 0.6 Thou/mm3 (0.0-0.8); Monocytes % (Auto) 13 % (0-12); Neutrophils # (Auto) 2.3 Thou/mm3 (1.8-7.7); Neutrophils % (Auto) 54 % (37-80); Nucleated Red Blood Cell # 0.00 Thou/mm3 (0.00-0.00); Nucleated Red Blood Cell % 0 /100 WBC (0); Platelet Count 109 Thou/mm3 (140-440); RDW Standard Deviation 49.6 fL (36.4-46.3); Red Blood Count 4.05 Miln/mm3 (4.00-5.20); White Blood Count 4.2 Thou/mm3 (3.6-11.0)
[2024-11-24 11:51] LABS: AFP Non-Pregnant 8.20 ng/mL (<8.10)
[2024-11-24 12:02] LABS: Alanine Aminotransferase 13 U/L (10-49); Albumin, Serum 4.2 gm/dL (3.4-4.8); Albumin/Globulin Ratio 1.4 (1.2-2.2); Alkaline Phosphatase 204 U/L (46-116); Anion Gap 10 (7-16); Aspartate Amino Transferase 32 U/L (0-34); BUN/Creatinine Ratio 15 Ratio (12-20); Bilirubin,Total 0.9 mg/dL (0.3-1.2); Blood Urea Nitrogen 16 mg/dL (9-23); Calcium 10.1 mg/dL (8.3-10.6); Calcium (Corrected) 10.1 mg/dL (8.5-10.1); Carbon Dioxide 26.1 mMol/L (20.0-31.0); Chloride 107 mMol/L (98-107); Creatinine (Component) 1.1 mg/dL (0.6-1.3); Globulin 3.1 gm/dL (2.3-3.5); Glucose 107 mg/dL (74-106); Osmolality,Calculated 286 (275-295); Potassium 4.0 mMol/L (3.4-5.1); Sodium 143 mMol/L (136-145); Total Protein 7.3 gm/dL (5.7-8.2); eGFR 57 See Note
== END | disposition home or self-care (01) ==
LOC: SCTO 10:32
PROVIDERS: PCP Internal Medicine; Referring Provider Internal Medicine Hematology & Oncology; Visit Provider Internal Medicine Hematology & Oncology
DX: K74.60 Unspecified cirrhosis of liver (principal)
CPT/HCPCS: 36415; 80053; 82105; 85025

== ENCOUNTER 2024-12-19 09:14 | Outpatient (RCR) | payer BC, SELFPAY | END 2025-01-05 23:59 | disposition home or self-care (01) | LOC: SCTC 09:14 | PROVIDERS: PCP Internal Medicine; Referring Provider Internal Medicine; Visit Provider Nurse Practitioner Family | DX: K74.60 Unspecified cirrhosis of liver (principal); Z86.2 Personal history of diseases of the blood and blood-forming organs and certain disorders involving the immune mechanism; E66.9 Obesity, unspecified; Z68.32 Body mass index [BMI] 32.0-32.9, adult | CPT/HCPCS: 99213; G0463 ==

== ENCOUNTER → 2025-01-25 | Outpatient (BNVA) | payer BC, SELFPAY | END | disposition home or self-care (01) | PROVIDERS: PCP Internal Medicine; Referring Provider Internal Medicine; Visit Provider Urology | DX: N39.0 Urinary tract infection, site not specified (principal); K75.4 Autoimmune hepatitis; K74.60 Unspecified cirrhosis of liver; K76.6 Portal hypertension; I10 Essential (primary) hypertension; Z87.891 Personal history of nicotine dependence | CPT/HCPCS: 81003; 99212; G0463 ==

== ENCOUNTER 2025-01-26 07:00 | Day surgery (SDC) | payer BC, SELFPAY ==
[2025-01-25 13:40] VITALS: BMI 34.4
[2025-01-26] VITALS (9 sets, daily range): BP systolic 106–139; BP diastolic 72–92; PULSE 69–79; RESP 7–18; TEMP 36.2–36.4; O2SAT 93–100; BMI 34.2
[2025-01-26] MEDS: SODIUM CHLORIDE 0.9% 500 ML 500 ML 20 ML IV (09:25)
[2025-01-26] MEDS: BENZOCAINE 20% (Hurricaine) SPRAY 1 DOSE TOP (09:27)
[2025-01-26] MEDS: fentaNYL CIT INJ 50 mCg/ML AMP 2ML (ASD USE ONLY) IVP (09:30)
[2025-01-26] MEDS: MIDAZOLAM INJ 1 MG/ML VIAL 2 ML (ASD USE ONLY) 2 MG IVP (09:30)
== END 2025-01-26 10:25 | disposition home or self-care (01) ==
PROVIDERS: PCP Internal Medicine; Referring Provider Specialist; Visit Provider Specialist
PROC: (CPT 43239; principal; 2025-01-26 13:00)
DX: Z13.810 Encounter for screening for upper gastrointestinal disorder (principal); K74.60 Unspecified cirrhosis of liver; K76.6 Portal hypertension; I85.10 Secondary esophageal varices without bleeding; R18.8 Other ascites; K29.50 Unspecified chronic gastritis without bleeding
CPT/HCPCS: 43239; A4649; J1200; J2250; J3010; J7999; A9270

== ENCOUNTER → 2025-01-29 | Outpatient (CLI) | payer BC, SELFPAY ==
[2025-01-29 13:30] LABS: Basophils # (Auto) 0.0 Thou/mm3 (0.0-0.2); Basophils % (Auto) 1 % (0-2.5); Eosinophils # (Auto) 0.1 Thou/mm3 (0.0-0.5); Eosinophils % (Auto) 2 % (0-10); Hematocrit 40.0 % (36.0-46.0); Hemoglobin 13.9 g/dL (12.0-16.0); Immature Granulocytes Auto 0.00 Thou/mm3 (0.00-0.00); Lymphocytes # (Auto) 1.1 Thou/mm3 (1.0-4.8); Lymphocytes % (Auto) 27 % (10-50); Mean Corpuscular HGB Conc 34.8 g/dl (31.0-37.0); Mean Corpuscular Hemoglobin 35.6 pg (25.0-35.0); Mean Corpuscular Volume 103 fL (80-100); Monocytes # (Auto) 0.4 Thou/mm3 (0.0-0.8); Monocytes % (Auto) 11 % (0-12); Neutrophils # (Auto) 2.3 Thou/mm3 (1.8-7.7); Neutrophils % (Auto) 59 % (37-80); Nucleated Red Blood Cell # 0.00 Thou/mm3 (0.00-0.00); Nucleated Red Blood Cell % 0 /100 WBC (0); Platelet Count 116 Thou/mm3 (140-440); RDW Standard Deviation 51.4 fL (36.4-46.3); Red Blood Count 3.90 Miln/mm3 (4.00-5.20); White Blood Count 3.9 Thou/mm3 (3.6-11.0)
[2025-01-29 13:38] LABS: AFP Non-Pregnant 7.10 ng/mL (<8.10)
[2025-01-29 13:44] LABS: Alanine Aminotransferase 13 U/L (10-49); Albumin, Serum 4.5 gm/dL (3.4-4.8); Albumin/Globulin Ratio 1.4 (1.2-2.2); Alkaline Phosphatase 188 U/L (46-116); Anion Gap 11 (7-16); Aspartate Amino Transferase 32 U/L (0-34); BUN/Creatinine Ratio 17 Ratio (12-20); Bilirubin,Total 0.8 mg/dL (0.3-1.2); Blood Urea Nitrogen 20 mg/dL (9-23); Calcium 9.7 mg/dL (8.3-10.6); Calcium (Corrected) 9.7 mg/dL (8.5-10.1); Carbon Dioxide 29.9 mMol/L (20.0-31.0); Chloride 105 mMol/L (98-107); Creatinine (Component) 1.2 mg/dL (0.6-1.3); Globulin 3.2 gm/dL (2.3-3.5); Glucose 129 mg/dL (74-106); Osmolality,Calculated 295 (275-295); Potassium 3.7 mMol/L (3.4-5.1); Sodium 146 mMol/L (136-145); Total Protein 7.7 gm/dL (5.7-8.2); eGFR 51 See Note
[2025-01-29 13:51] LABS: INR 1.1 (0.9-1.3); Prothrombin Time 11.8 Seconds (9.0-12.2)
== END | disposition home or self-care (01) ==
LOC: COPL 12:41
PROVIDERS: PCP Internal Medicine; Referring Provider Specialist; Visit Provider Specialist
DX: K75.4 Autoimmune hepatitis (principal); E78.9 Disorder of lipoprotein metabolism, unspecified
CPT/HCPCS: 36415; 80053; 82105; 85025; 85610